=== PATIENT | male | born 1945 | race Caucasian/White ===

== ENCOUNTER 2016-12-18 11:44 | Emergency (ER) | payer MEDICARE ==
[~2016-12-18 11:44] MED LIST: ADVAIR 250-501 EACH IH; ANTI-DIARRHEAL2 MG PO; ASPIR 8181 MG PO; CLARITIN10 M2 PO; IPRAT-ALBUT 0.5-3 ML INH; MULTIVITAMINS1 EAC1 PO; PLAVIX 75 MG TA75 MG PO; VITAMIN D50000 UNIT PO; ZOCOR10 MG PO
[2016-12-18 14:53] LABS: RED BLOOD COUNT 4.56 M/UL (4.20-5.50); WHITE BLOOD COUNT 17.2 K/UL (4.5-11.0)
[2016-12-18 15:12] LABS: BUN/CREATININE RATIO 17 (0-10)
== END 2016-12-18 18:40 | disposition home or self-care (01) ==
LOC: ER1 11:44
PROVIDERS: Physician Assistant Medical
DX: S42.211A Unspecified displaced fracture of surgical neck of right humerus, initial encounter for closed fracture (principal); S00.81XA Abrasion of other part of head, initial encounter; S00.211A Abrasion of right eyelid and periocular area, initial encounter; F17.210 Nicotine dependence, cigarettes, uncomplicated; Z88.1 Allergy status to other antibiotic agents; W01.0XXA Fall on same level from slipping, tripping and stumbling without subsequent striking against object, initial encounter; Y93.K1 Activity, walking an animal; Y92.009 Unspecified place in unspecified non-institutional (private) residence as the place of occurrence of the external cause; Z88.2 Allergy status to sulfonamides; Z79.02 Long term (current) use of antithrombotics/antiplatelets; Z79.899 Other long term (current) drug therapy
CPT/HCPCS: 36415; 70450; 71010; 72125; 73020; 73030; 73060; 73080; 80053; 85025; 96374; 96375; 96376; 99284; J2270; J2405

== ENCOUNTER → 2017-01-18 | Outpatient (CLI) | payer MEDICARE | LOC: EXRD 10:42 | DX: C34.90 Malignant neoplasm of unspecified part of unspecified bronchus or lung (principal) | CPT/HCPCS: 71020 ==

== ENCOUNTER 2017-02-08 14:57 | Emergency (ER) | payer MEDICARE ==
[2017-02-08 16:59] LABS: HEMOGLOBIN 13.7 gm/dl (14.0-17.5); RED BLOOD COUNT 4.89 M/UL (4.20-5.50); WHITE BLOOD COUNT 8.4 K/UL (4.5-11.0)
[2017-02-08 17:20] LABS: BUN/CREATININE RATIO 20 (0-10)
== END 2017-02-08 20:03 | disposition home or self-care (01) ==
LOC: ER1 14:57
PROVIDERS: Emergency Medicine
DX: R13.10 Dysphagia, unspecified (principal); J44.9 Chronic obstructive pulmonary disease, unspecified; F17.200 Nicotine dependence, unspecified, uncomplicated; D64.9 Anemia, unspecified; Z85.118 Personal history of other malignant neoplasm of bronchus and lung; Z88.2 Allergy status to sulfonamides
CPT/HCPCS: 36415; 80053; 81001; 84484; 85025; 99283; J7030

== ENCOUNTER → 2017-02-09 | Outpatient (CLI) | payer MEDICARE | LOC: HEART 5 10:23 | DX: J44.9 Chronic obstructive pulmonary disease, unspecified (principal); F17.210 Nicotine dependence, cigarettes, uncomplicated | CPT/HCPCS: 94060; 94729 ==

== ENCOUNTER → 2017-05-13 | Outpatient (CLI) | payer MEDICARE | LOC: RAD 10:16 | DX: M25.462 Effusion, left knee (principal) | CPT/HCPCS: 73562 ==

== ENCOUNTER → 2020-09-23 | Outpatient (CLI) | payer MEDICARE ==
[~2020-09-23] MED LIST changes: +ALEVE220 M1 PO; +ENSURE; +LEVAQUIN750 MG PO; +MEGACE 400400 MG/10 PO; +SINGULAIR10 MG PO; +VITAMIN D32000 UNI1 PO
== END ==
LOC: HEART 5 08-19 13:30
DX: M79.89 Other specified soft tissue disorders (principal); I87.2 Venous insufficiency (chronic) (peripheral)
CPT/HCPCS: 93970

== ENCOUNTER → 2021-05-15 | Outpatient (CLI) | payer MEDICARE | LOC: ECHO 10:11 | DX: R01.1 Cardiac murmur, unspecified (principal) | CPT/HCPCS: ECHO; 93306 ==

== ENCOUNTER → 2022-05-12 | Outpatient (CLI) | payer MEDICARE | LOC: KOH-I 12:23 | DX: E22.2 Syndrome of inappropriate secretion of antidiuretic hormone (principal); J43.9 Emphysema, unspecified | CPT/HCPCS: 71250 ==